=== PATIENT | female | born 1985 | race American Indian/Alaskan Native ===

== ENCOUNTER 2017-04-13 14:02 | Outpatient (CLI) | payer MEDICAID ==
[2017-04-13 14:21] VITALS: BP 122/83
[2017-04-13] MEDS ORDERED: LACTATED RINGERS 1,000 ML IV ONE ×2 (15:46→17:35)
[2017-04-13 18:03] LABS: Alanine Aminotransferase 9 units/L (7-56); Albumin 3.5 g/dL (3.9-5); Alkaline Phosphatase 139 units/L (35-129); Anion Gap 21 mmol/L; BUN/Creatinine Ratio 18; Blood Urea Nitrogen 7 mg/dL (7-17); Calcium 8.6 mg/dL (8.4-10.2); Carbon Dioxide 19 mmol/L (22-30); Chloride 103.2 mmol/L (98-107); Glucose 62 mg/dL (65-100); Potassium 3.8 mmol/L (3.6-5.0); Sodium 139 mmol/L (137-145)
[2017-04-13 18:24] LABS: Bacteria,Urine 1+ /HPF (Negative); Bilirubin,Urine NEG (Negative); Blood,Urine NEG (Negative); Ketones,Urine 20 mg/dL (Negative); Leukocyte Esterase,Urine NEG (Negative); Mucus,Urine FEW /HPF; Nitrite,Urine NEG (Negative); Protein,Urine <15 mg/dL mg/dL (Negative); Urobilinogen,Urine < 2.0 mg/dL (<2.0)
== END 2017-04-13 19:30 | disposition home or self-care (01) ==
LOC: TRG 14:02
PROVIDERS: ATTEND Obstetrics & Gynecology
DX: O47.1 False labor at or after 37 completed weeks of gestation (principal); Z3A.38 38 weeks gestation of pregnancy
CPT/HCPCS: 36415; 80053; 81001; 96360; J7120

== ENCOUNTER 2018-10-03 19:23 | Emergency (ER) | payer MEDICAID, OTHER ==
--- NOTE | 2018-10-03 19:32 | Emergency Department Report ---
Blank Doc - Documentation Documentation: This is a 33-year-old female that presents with lower abd pain with n/v. This initial assessment/diagnostic orders/clinical plan/treatment(s) is/are subject to change based on patient's health status, clinical progression and re- assessment by fellow clinical providers in the ED. Further treatment and workup at subsequent clinical providers discretion. Patient/guardians urged not to elope from the ED as their condition may be serious if not clinically assessed and managed. Initial orders include: 1- Patient sent to [facility] for further evaluation and treatment 2- labs 3- UA
[2018-10-03 20:09] LABS: Basophils % (Auto) 0.7 % (0.0-1.8); Eosinophils # (Auto) 0.1 K/mm3 (0.0-0.4); Eosinophils % (Auto) 1.2 % (0.0-4.3); Hematocrit 32.6 % (30.3-42.9); Hemoglobin 10.4 gm/dl (10.1-14.3); Lymphocytes # (Auto) 2.8 K/mm3 (1.2-5.4); Lymphocytes % (Auto) 38.1 % (13.4-35.0); Mean Corpuscular HGB Conc 32 % (30-34); Monocytes # (Auto) 0.4 K/mm3 (0.0-0.8); Monocytes % (Auto) 5.8 % (0.0-7.3); Platelet Count 240 K/mm3 (140-440); Red Blood Count 4.72 M/mm3 (3.65-5.03)
[2018-10-03 20:12] LABS: Mean Corpuscular Volume 69 fl (79-97)
[2018-10-03 20:32] LABS: Alanine Aminotransferase 11 units/L (7-56); BUN/Creatinine Ratio 17; Blood Urea Nitrogen 10 mg/dL (7-17); Calcium 9.4 mg/dL (8.4-10.2); Hemolysis Index 0
[2018-10-03 20:33] LABS: Bilirubin,Urine NEG (Negative); Blood,Urine NEG (Negative); Color,Urine Yellow (Yellow); Mucus,Urine 3+ /HPF; Protein,Urine <15 mg/dL mg/dL (Negative)
[2018-10-03] MEDS ORDERED: ZOFRAN IV ONE (21:22)
--- NOTE | 2018-10-03 21:23 | Emergency Department Report ---
ED General Adult HPI - General Chief complaint: Abdominal Pain Stated complaint: LOWER ABD PAIN DIZZINESS NAUSEA Time Seen by Provider: 10/03/18 19:31 Source: patient, RN notes reviewed, old records reviewed Mode of arrival: Ambulatory Limitations: No Limitations - History of Present Illness Initial comments: This is a 33-year-old female. This patient is not known to this provider previously. The patient is 4, para 3. Last menstrual period is August 20. Surgical history is significant for appendectomy and . The patient does not have a local primary care doctor or drafter directional survey. Patient presents to the emergency room today with complaint of nontraumatic periumbilical abdominal pain, that radiates down to the suprapubic and pelvic region.. These symptoms have been present since this morning. They worsened with laying flat, palpation, and decreased with lying on her right hand side. She endorses a few episodes of nonbloody, nonbilious emesis. She denies headache, neck pain, chest pain, upper abdominal pain. She reports dizziness and generalized weakness. Dizziness is described as binocular blurry vision. There is no visual pain. There is no loss of visual acuity. Patient thinks that she's been trying to hydrate to keep her fluids up, but indicates since been difficult and the extremely hot heat. She is not sure if she has experienced any unintentional weight loss. She does report that she feels slightly constipated, and indicates that she feels a little "backed up." -: Gradual, hour(s), days(s) Location: abdomen Radiation: other Quality: aching Consistency: other Improves with: other Worsens with: other - Related Data Previous Rx's Medication Instructions Recorded Last Taken Type Pnv 21/Iron Ps,Heme Ppep/Folic 1 each PO QDAY #30 tablet 02/08/14 1 Day Ago Rx [Prefera Ob Tablet] ~04/12/17 Acetaminophen [Non-Aspirin Extra 500 mg PO Q6HR PRN #30 tablet 10/04/18 Unknown Rx Strength] Doxylamine Succinate/Vit B6 1 each PO QHS PRN #30 tablet. 10/04/18 Unknown Rx [Gume Waller 10-10 mg Tablet] Dacia Root [Dacia] 250 mg PO QID PRN #30 capsule 10/04/18 Unknown Rx Vit-Fe Fumar-FA [ 1 tab PO QDAY #30 tablet 10/04/18 Unknown Rx Vitamin] Allergies Allergy/AdvReac Type Severity Reaction Status Date / Time latex Allergy Rash Verified 11/25/13 07:27 ED Review of Systems ROS: Stated complaint: LOWER ABD PAIN DIZZINESS NAUSEA Other details as noted in HPI Constitutional: malaise, weakness. denies: fever Eyes: denies: eye pain ENT: denies: epistaxis Respiratory: denies: cough Cardiovascular: denies: chest pain Gastrointestinal: abdominal pain, nausea, vomiting, constipation. denies: diarrhea Genitourinary: denies: dysuria Musculoskeletal: denies: back pain, arthralgia Skin: denies: lesions Neurological: weakness Psychiatric: anxiety ED Past Medical Hx - Past Medical History Hx Hypertension: No Hx Congestive Heart Failure: No Hx Diabetes: No Hx Deep Vein Thrombosis: No Hx Renal Disease: No Hx Sickle Cell Disease: No Hx Seizures: No Hx Asthma: No Hx COPD: No Hx HIV: No - Surgical History Hx Appendectomy: Yes Additional Surgical History: 2007 - Social History Smoking Status: Never Smoker Substance Use Type: None - Medications Home Medications: Home Medications Medication Instructions Recorded Confirmed Last Taken Type Pnv 21/Iron Ps,Heme Ppep/Folic 1 each PO QDAY #30 tablet 02/08/14 04/13/17 1 Day Ago Rx [Prefera Ob Tablet] ~04/12/17 Acetaminophen [Non-Aspirin Extra 500 mg PO Q6HR PRN #30 tablet 10/04/18 Unknown Rx Strength] Doxylamine Succinate/Vit B6 1 each PO QHS PRN #30 tablet. 10/04/18 Unknown Rx [Gume Waller 10-10 mg Tablet] Dcaia Root [Dacia] 250 mg PO QID PRN #30 capsule 10/04/18 Unknown Rx Vit-Fe Fumar-FA [ 1 tab PO QDAY #30 tablet 10/04/18 Unknown Rx Vitamin] ED Physical Exam - General Limitations: No Limitations General appearance: alert, in no apparent distress - Head Head exam: Present: atraumatic, normocephalic - Eye Eye exam: Present: normal appearance, PERRL, EOMI, other (visual acuity intact to finger counting, color perception, reading at a close distance). Absent: nystagmus - ENT ENT exam: Present: normal exam, normal orophraynx, mucous membranes moist, normal external ear exam - Neck Neck exam: Present: normal inspection, full ROM. Absent: tenderness, meningismus - Respiratory Respiratory exam: Present: normal lung sounds bilaterally. Absent: respiratory distress - Cardiovascular Cardiovascular Exam: Present: regular rate, normal rhythm, normal heart sounds. Absent: bradycardia, tachycardia, irregular rhythm, systolic murmur, diastolic murmur, rubs, gallop - GI/Abdominal GI/Abdominal exam: Present: soft. Absent: distended, tenderness, guarding, rebound, rigid, pulsatile mass - Extremities Exam Extremities exam: Present: normal inspection, full ROM, other (2+ pulses noted in the bilateral upper, lower extremities. Compartments soft. No long bony tenderness. The pelvis is stable.). Absent: pedal edema, joint swelling, calf tenderness - Back Exam Back exam: Present: normal inspection, full ROM. Absent: tenderness, CVA t enderness (R), CVA tenderness (L), paraspinal tenderness, vertebral tenderness - Neurological Exam Neurological exam: Present: alert, oriented X3, normal gait (there is no pass pointing. There is normal [id number]-[id number]. There is no pronator drift.), other (Extraocular movements intact. Tongue midline. No facial droop. Facial sensation intact to light touch in the V1, V2, V3 distribution bilaterally. 5 and 5 strength in 4 extremities.. Sensation is intact to light touch in 4 extremities.). Absent: motor sensory deficit - Psychiatric Psychiatric exam: Present: anxious - Skin Skin exam: Present: warm, dry, intact, normal color. Absent: rash ED Course Vital Signs 10/03/18 10/03/18 10/03/18 19:26 22:37 22:40 Temperature 97.7 F 98.0 F Pulse Rate 84 73 Respiratory 20 18 18 Rate Blood Pressure 126/74 Blood Pressure 115/67 [Left] O2 Sat by Pulse 98 99 99 Oximetry - Reevaluation(s) Reevaluation #1: 10/03/18 21:53 Differential diagnosis, including not limited to: Ectopic , intrauterine , nausea and vomiting of , subchorionic hemorrhage, dehydration, electrolyte derangement Assessment and plan: 33-year-old female who is , history of appendectomy a few years ago, with probable nausea and vomiting of . The patient is afebrile, with reassuring vital signs, walking with a steady gait, has a nonfocal neurologic examination, unremarkable gross visual examination, as a soft benign belly. We will treat her symptoms, obtain screening laboratory studies, obtain pelvic ultrasound, and we will reassess after her data points haven't resulted. Reevaluation #2: 10/04/18 00:50 Ultrasound confirms intrauterine . Patient tolerating liquid feeds. Feels improved. Resting comfortably. Belly soft on repeat exam. Medically suitable for discharge with outpatient follow-up with [facility]. ED Medical Decision Making - Lab Data Result diagrams: 10/03/18 19:51 10/03/18 19:51 Vital Signs 10/03/18 19:26 Temperature 97.7 F Pulse Rate 84 Respiratory 20 Rate Blood Pressure 126/74 O2 Sat by Pulse 98 Oximetry Lab Results 10/03/18 10/03/18 10/03/18 Range/Units 19:51 19:51 19:51 WBC 7.3 (4.5-11.0) K/mm3 RBC 4.72 (3.65-5.03) M/mm3 Hgb 10.4 (10.1-14.3) gm/dl Hct 32.6 (30.3-42.9) % MCV 69 L (79-97) fl MCH 22 L (28-32) pg MCHC 32 (30-34) % RDW 15.0 (13.2-15.2) % Plt Count 240 (140-440) K/mm3 Lymph % (Auto) 38.1 H (13.4-35.0) % [place] % (Auto) 5.8 (0.0-7.3) % Eos % (Auto) 1.2 (0.0-4.3) % Baso % (Auto) 0.7 (0.0-1.8) % Lymph # 2.8 (1.2-5.4) K/mm3 [place] # 0.4 (0.0-0.8) K/mm3 Eos # 0.1 (0.0-0.4) K/mm3 Baso # 0.0 (0.0-0.1) K/mm3 Seg Neutrophils % 54.2 (40.0-70.0) % Seg Neutrophils # 4.0 (1.8-7.7) K/mm3 Sodium 137 (137-145) mmol/L Potassium 3.7 (3.6-5.0) mmol/L Chloride 101.6 (98-107) mmol/L Carbon Dioxide 22 (22-30) mmol/L Anion Gap 17 mmol/L BUN 10 (7-17) mg/dL Creatinine 0.6 L (0.7-1.2) mg/dL Estimated GFR > 60 ml/min BUN/Creatinine Ratio 17 % Glucose 95 (65-100) mg/dL Calcium 9.4 (8.4-10.2) mg/dL Total Bilirubin < 0.20 (0.1-1.2) mg/dL AST 9 (5-40) units/L ALT 11 (7-56) units/L Alkaline Phosphatase 55 (35-129) units/L Total Protein 7.2 (6.3-8.2) g/dL Albumin 4.0 (3.9-5) g/dL Albumin/Globulin Ratio 1.3 % Lipase 20 (13-60) units/L HCG, Qual Positive (Negative) Urine Color (Yellow) Urine Turbidity (Clear) Urine pH (5.0-7.0) Ur Specific [place] (1.003-1.030) Urine Protein (Negative) mg/dL Urine Glucose (UA) (Negative) mg/dL Urine Ketones (Negative) mg/dL Urine Blood (Negative) Urine Nitrite (Negative) Urine Bilirubin (Negative) Urine Urobilinogen (<2.0) mg/dL Ur Leukocyte Esterase (Negative) Urine WBC (Auto) (0.0-6.0) /HPF Urine RBC (Auto) (0.0-6.0) /HPF U Epithel Cells (Auto) (0-13.0) /HPF Urine Mucus /HPF 10/03/18 Range/Units 20:02 WBC (4.5-11.0) K/mm3 RBC (3.65-5.03) M/mm3 Hgb (10.1-14.3) gm/dl Hct (30.3-42.9) % MCV (79-97) fl MCH (28-32) pg MCHC (30-34) % RDW (13.2-15.2) % Plt Count (140-440) K/mm3 Lymph % (Auto) (13.4-35.0) % [place] % (Auto) (0.0-7.3) % Eos % (Auto) (0.0-4.3) % Baso % (Auto) (0.0-1.8) % Lymph # (1.2-5.4) K/mm3 [place] # (0.0-0.8) K/mm3 Eos # (0.0-0.4) K/mm3 Baso # (0.0-0.1) K/mm3 Seg Neutrophils % (40.0-70.0) % Seg Neutrophils # (1.8-7.7) K/mm3 Sodium (137-145) mmol/L Potassium (3.6-5.0) mmol/L Chloride (98-107) mmol/L Carbon Dioxide (22-30) mmol/L Anion Gap mmol/L BUN (7-17) mg/dL Creatinine (0.7-1.2) mg/dL Estimated GFR ml/min BUN/Creatinine Ratio % Glucose (65-100) mg/dL Calcium (8.4-10.2) mg/dL Total Bilirubin (0.1-1.2) mg/dL AST (5-40) units/L ALT (7-56) units/L Alkaline Phosphatase (35-129) units/L Total Protein (6.3-8.2) g/dL Albumin (3.9-5) g/dL Albumin/Globulin Ratio % Lipase (13-60) units/L HCG, Qual (Negative) Urine Color Yellow (Yellow) Urine Turbidity Slightly-cloudy (Clear) Urine pH 5.0 (5.0-7.0) Ur Specific [place] 1.027 (1.003-1.030) Urine Protein <15 mg/dl (Negative) mg/dL Urine Glucose (UA) Neg (Negative) mg/dL Urine Ketones Tr (Negative) mg/dL Urine Blood Neg (Negative) Urine Nitrite Neg (Negative) Urine Bilirubin Neg (Negative) Urine Urobilinogen 2.0 (<2.0) mg/dL Ur Leukocyte Esterase Neg (Negative) Urine WBC (Auto) 1.0 (0.0-6.0) /HPF Urine RBC (Auto) 3.0 (0.0-6.0) /HPF U Epithel Cells (Auto) 3.0 (0-13.0) /HPF Urine Mucus 3+ /HPF - EKG Data -: EKG Interpreted by [facility] EKG shows normal: sinus rhythm Rate: normal - EKG Data 10/03/18 21:54 This is a normal sinus rhythm, 76 bpm, normal axis, QTC within normal limits, borderline prolonged NV interval, motion artifact, no complaint of chest pain, this is an abnormal EKG. This is not consistent with ST elevation myocardial infarction. There is no prior for comparison. - Radiology Data Radiology results: pending, report reviewed, image reviewed Print Report Referring Physician: JENNIFER ELLIOTT Patient Name: HILTON FALK Date of : 1985 Sex: Female Report Date: 2018-10-03 Report Status: Finalized Findings [facility] [address] [place] [address] Ultrasound Report Signed Patient: HILTON FALK MR#: [id number] : 1985 Acct:[id number] Age/Sex: 33 / F ADM Date: 10/03/18 Loc: ED Attending Dr: Ordering Physician: JENNIFER ELLIOTT MD Date of Service: 10/03/18 Procedure(s): US OB <= 14 weeks fetus Accession Number(s): [id number] cc: JENNIFER ELLIOTT MD PROCEDURE: US OB <= 14 WEEKS FETUS TECHNIQUE: Transabdominal OB ultrasound was obtained. Fetus was documented. Measurements were obtained. HISTORY: ABD PAIN COMPARISONS: Transvaginal OB ultrasound also performed today. FINDINGS: The report for this exam was generated using images from both the transabdominal and transvaginal OB ultrasound. Both of these studies were performed today. There is a single living intrauterine gestation visualized currently with a heart rate of 150 bpm. Fetus currently too small to assess anatomy. No gross abnormality is visualized. Amount of amniotic fluid appears normal. No evidence of subchorionic hemorrhage. Placenta location is not yet defined. There is currently too small to assess anatomy. No gross abnormality is visualized. [place]-rump length measurement 14.1 mm corresponds to an age of 7 weeks 5 days. Slightly heterogeneous nodule visualized in the left ovary measuring 2.2 cm greatest diameter. Similar-appearing nodule seen in the right ovary measuring 2.5 cm. Follow-up exam suggested. This ma y represent corpus luteum cyst of . Ovaries otherwise are unremarkable. IMPRESSION: There is a single living intrauterine gestation present. [place]-rump length measurement corresponds to an estimated age 7 weeks 5 days. This places the EDC at 05/17/2019 +/- 0.5 weeks. Fetus currently too small to assess anatomy. Consid er follow-up anatomic screen at 18-20 weeks.. No gross abnormalities seen today. Nodular density seen in the right and left ovary as described may represent corpus luteum cyst of . Follow-up exam suggested to ensure resolution. This document is electronically signed by Lucas Mittal MD., Oct 04 2018 12:46:13 AM ET Transcribed By: FOUZIA Dictated By: LUCAS MITTAL MD Electronically Authenticated By: LUCAS MITTAL MD Signed Date/Time: 10/04/18 0048 Critical care attestation.: If time is entered above; I have spent that time in minutes in the direct care of this critically ill patient, excluding procedure time. ED Disposition Clinical Impression: Lower abdominal pain, Nausea and vomiting during Disposition: DC-01 TO HOME OR SELFCARE Is pt being admited?: No Does the pt Need Aspirin: No Condition: Stable Instructions: Hyperemesis Gravidarum (ED) Additional Instructions: Advance diet as tolerated. Take the pain medication, nausea medication as needed/directed. Take the vitamins as directed. Follow up with an [facility] doctor as soon as possible to initiate outpatient care. Patient may consume water and/or prune juice to facilitate bowel movements. Please return to the emergency room right away with new pain, worsened pain, migration of pain, projectile vomiting, change in mental status, confusion, inability to tolerate liquid feeds, new, worsening or different symptoms not present on the initial ER evaluation. Referrals: [facility] [Provider Group] - 3-5 Days [facility] [employer] [Provider Group] - 3-5 Days [facility] [Provider Group] - 3-5 Days
[2018-10-03] MEDS ORDERED: TYLENOL PO ONE (21:52)
[2018-10-03] MEDS ORDERED: D5/0.45NS 1,000 ML IV SCH (22:00)
[2018-10-03] MEDS ORDERED: TYLENOL ONE (22:33)
[2018-10-03 22:38] VITALS: BP 115/67
--- NOTE | 2018-10-04 00:48 | Ultrasound Report ---
PROCEDURE: US OB <= 14 WEEKS FETUS TECHNIQUE: Transabdominal OB ultrasound was obtained. Fetus was documented. Measurements were obtain ed. HISTORY: ABD PAIN COMPARISONS: Transvaginal OB ultrasound also performed today. FINDINGS: The report for this exam was generated using images from both the transabdominal and transvaginal OB ultrasound. Both of these studies were performed today. There is a single living intrauterine gestation visualized currently with a heart rate of 150 bpm. Fe tus currently too small to assess anatomy. No gross abnormality is visualized. Amount of amniotic flu id appears normal. No evidence of subchorionic hemorrhage. Placenta location is not yet defined. Ther e is currently too small to assess anatomy. No gross abnormality is visualized. [place]-rump length juan carlos surement 14.1 mm corresponds to an age of 7 weeks 5 days. Slightly heterogeneous nodule visualized in the left ovary measuring 2.2 cm greatest diameter. Simila r-appearing nodule seen in the right ovary measuring 2.5 cm. Follow-up exam suggested. This may repre sent corpus luteum cyst of . Ovaries otherwise are unremarkable. IMPRESSION: There is a single living intrauterine gestation present. [place]-rump length measurement corresponds to an estimated age 7 weeks 5 days. This places the EDC at 05/17/2019 +/- 0.5 weeks. Fetus currently too small to assess anatomy. Consider follow-up anatomic scr een at 18-20 weeks.. No gross abnormalities seen today. Nodular density seen in the right and left ovary as described may represent corpus luteum cyst of pre gnancy. Follow-up exam suggested to ensure resolution. This document is electronically signed by Lucas Maharaj MD., Oct 04 2018 12:46:13 AM ET
--- NOTE | 2018-10-04 00:49 | Ultrasound Report ---
PROCEDURE: US OB TRANSVAGINAL TECHNIQUE: Transvaginal OB ultrasound was performed. The fetus was identified and images were obtain ed. Measurements were obtained. HISTORY: ABD PAIN COMPARISONS: Transabdominal OB ultrasound also performed today. FINDINGS: The report for this exam was generated using images from both the transabdominal and transvaginal OB ultrasound. Both of these studies were performed today. There is a single living intrauterine gestation visualized currently with a heart rate of 150 bpm. Fe tus currently too small to assess anatomy. No gross abnormality is visualized. Amount of amniotic flu id appears normal. No evidence of subchorionic hemorrhage. Placenta location is not yet defined. Ther e is currently too small to assess anatomy. No gross abnormality is visualized. [place]-rump length juan carlos surement 14.1 mm corresponds to an age of 7 weeks 5 days. Slightly heterogeneous nodule visualized in the left ovary measuring 2.2 cm greatest diameter. Simila r-appearing nodule seen in the right ovary measuring 2.5 cm. Follow-up exam suggested. This may repre sent corpus luteum cyst of . Ovaries otherwise are unremarkable. IMPRESSION: There is a single living intrauterine gestation present. [place]-rump length measurement corresponds to an estimated age 7 weeks 5 days. This places the EDC at 05/17/2019 +/- 0.5 weeks. Fetus currently too small to assess anatomy. Consider follow-up anatomic scr een at 18-20 weeks.. No gross abnormalities seen today. Nodular density seen in the right and left ovary as described may represent corpus luteum cyst of pre gnancy. Follow-up exam suggested to ensure resolution. This document is electronically signed by Lucas Maharaj MD., Oct 04 2018 12:47:21 AM ET
== END 2018-10-04 01:10 | disposition home or self-care (01) ==
LOC: ED 19:23
DX: O21.9 Vomiting of pregnancy, unspecified (principal); Z90.49 Acquired absence of other specified parts of digestive tract; Z3A.01 Less than 8 weeks gestation of pregnancy; Z91.040 Latex allergy status
CPT/HCPCS: 36415; 76801; 76817; 80053; 81001; 83690; 83735; 84702; 84703; 85025; 86850; 86900; 86901; 93005; 93010; 96361; 96374; 99284; J2405